=== PATIENT | female | born 1970 | race Caucasian/White ===

== ENCOUNTER 2017-10-01 11:33 | Emergency (ER) | payer OTHER ==
[2017-10-01 11:41] VITALS: TEMP 98.1; BMI 27.4
--- NOTE | 2017-10-01 12:30 | PDOC ---
History of Present Illness - General History Source: Patient Exam Limitations: No Limitations - History of Present Illness Initial Comments: 10/01/17 13:42 The patient is a 46 year old female with a significant PMH of anxiety and depression who presents to the emergency department with a 2 episodes of sharp, localized left sided chest pain beginning approximately 2 days ago. She reports walking to sit and eat and feeling a sudden onset of sharp left sided chest pain on Thursday night which lasted a few minutes before resolving. She reports feeling left chest soreness after this episode all day yesterday which was aggravated by movement and deep inspiration. She reports experiencing a second episode of her sharp left sided chest pain about 3 hours ago while lying in bed , which has been intermittent since then. She reports taking muscle relaxant which she had for a herniated disc to no relief. She notes she had an episode of chest pain about 1 year ago which lasted 1 hour and resolved on its own, but she did not go to the doctor. Of note, the patient had the flu about 1 month ago. The patient denies any nausea, vomiting, or diaphoresis. Family history is pertinent for heart attack (father in 60s). She notes there may be a chance of . The patient denies shortness of breath, headache and dizziness. Denies fever, chills, nausea, vomit, diarrhea and constipation. Denies dysuria, frequency, urgency and hematuria. Allergies: NKA Past surgical history: None reported. Social history: No reported cigarette, alcohol, or drug use. PCP: Dr. Santamaria <Bhavik Pérez - Last Filed: 10/01/17 13:46> <Gamal Gallagher - Last Filed: 10/02/17 16:56> - General Chief Complaint: Chest Pain Stated Complaint: CHEST PAIN Time Seen by Provider: 10/01/17 12:11 Past History <Bhavik Pérez - Last Filed: 10/01/17 13:46> - Past Medical History COPD: No Other medical history: DENIES. - Suicide/Smoking/Psychosocial Hx Smoking History: Never smoked <Gamal Gallagher - Last Filed: 10/02/17 16:56> - Past Medical History Allergies/Adverse Reactions: Allergies Allergy/AdvReac Type Severity Reaction Status Date / Time Penicillins Allergy Verified 10/01/17 11:37 Review of Systems - Review of Systems Able to Perform ROS?: Yes Comments:: 10/01/17 13:42 A complete review of 10 out of 10 review of systems is taken and is negative apart from what is previously mentioned below and in the HPI. <Bhavik Pérez - Last Filed: 10/01/17 13:46> *Physical Exam - Vital Signs Last Vital Signs Temp Pulse Resp BP Pulse Ox 98.1 F 85 19 146/87 100 10/01/17 11:37 10/01/17 11:37 10/01/17 11:37 10/01/17 11:37 10/01/17 11:37 - Physical Exam Comments: 10/01/17 13:45 Vitals: Triage Vital signs reviewed General Appearance: no acute distress, well nourished well developed, Chest Wall: Nontender Cardiac: Regular rate and rhythm, no murmurs, no rubs, no gallops, Lungs: Clear to auscultation bilateral, good air movement bilaterally, Extremities: Full range of motion to all extremities, no cyanosis, clubbing, or edema Neuro: AOX3; Cranial Nerves 2-12 grossly intact, Strength intact to all extremities, Sensation intact to all extremities Psych: normal mood, normal affect <Bhavik Pérez - Last Filed: 10/01/17 13:46> - Vital Signs Last Vital Signs Temp Pulse Resp BP Pulse Ox 98.1 F 85 19 146/87 100 10/01/17 11:37 10/01/17 11:37 10/01/17 11:37 10/01/17 11:37 10/01/17 11:37 <Gamal Gallagher - Last Filed: 10/02/17 16:56> Heart Score/ECG Review - ECG Impressions Comment:: 10/01/17 13:[address] elevations or T-wave inversions Interpreted by me <Gamal Gallagher - Last Filed: 10/02/17 16:56> ED Treatment Course - LABORATORY CBC & Chemistry Diagram: 10/01/17 13:05 10/01/17 13:05 - ADDITIONAL ORDERS Additional order review: Laboratory Results 10/01/17 12:30 Urine HCG, Qual Negative 10/01/17 13:05 RBC 4.78 MCV 91.2 MCHC 32.7 RDW 13.2 MPV 8.4 Neutrophils % 37.4 L Lymphocytes % 48.9 H Monocytes % 6.8 Eosinophils % 5.9 H Basophils % 1.0 <Bhavik Pérez - Last Filed: 10/01/17 13:46> - LABORATORY CBC & Chemistry Diagram: 10/01/17 13:05 10/01/17 13:05 <Gamal Gallagher - Last Filed: 10/02/17 16:56> Medical Decision Making - Medical Decision Making 10/01/17 13:54 46 years old no past medical history several day history of intermittent left- sided chest pain. No diaphoresis no nausea no vomiting non-radiating. No PE DVT risk factors. Negative by perc criteria. Low suspicion for ACS. Heart score 1 We'll check troponin 2 EKG observe and reassess Reevaluation patient chest pain-free troponin negative 2 heart score 1 Patient will follow-up her primary care provider this week Findings, the need for follow-up, strict return instructions discussed with patient. <Gamal Gallagher - Last Filed: 10/02/17 16:56> *DC/Admit/Observation/Transfer - Attestations Scribe Attestion: 10/01/17 13:43 Documentation prepared by Bhavik Pérez, acting as medical laboratory specialist for Gamal Gallagher MD. <Bhavik Pérez - Last Filed: 10/01/17 13:46> - Discharge Dispostion Admit: No <Gamal Gallagher - Last Filed: 10/02/17 16:56> Diagnosis at time of Disposition: Atypical chest pain - Discharge Dispostion Disposition: HOME - Referrals Referrals: Alessandro Santamaria [Primary Care Provider] - - Patient Instructions Printed Discharge Instructions: DI for Atypical Chest Pain Additional Instructions: Drink plenty fluids. Follow up with her doctor this week. Return to the emergency department for any severe worsening symptoms or for any concerns. - Post Discharge Activity
[2017-10-01 13:19] LABS: EOS % 5.9 % (0-4.5); HEMATOCRIT 43.7 % (32.4-45.2); HEMOGLOBIN 14.3 GM/dL (10.7-15.3); LYMPH % 48.9 % (8-40); MCH 29.8 pg (25.7-33.7); MCHC 32.7 g/dl (32.0-36.0); MEAN CELL VOLUME 91.2 fl (80-96); MEAN PLT VOLUME 8.4 fl (7.5-11.1); MONO % 6.8 % (3.8-10.2); NEUT % 37.4 % (42.8-82.8); PLATELET COUNT 220 K/MM3 (134-434); RBC 4.78 M/mm3 (3.60-5.2); RDW 13.2 % (11.6-15.6); WHITE BLOOD COUNT 7.6 K/mm3 (4.0-10.0)
[2017-10-01 13:41] LABS: ALBUMIN 3.7 g/dl (3.4-5.0); ANION GAP 13 (8-16); BILIRUBIN,TOTAL 0.3 mg/dL (0.2-1.0); BLOOD UREA NITROGEN 14 mg/dL (7-18); CALCIUM 8.8 mg/dL (8.5-10.1); CHLORIDE 109 mmol/L (98-107); CO2 20 mmol/L (21-32); CREATININE 0.9 mg/dL (0.55-1.02); GLUCOSE,RANDOM 76 mg/dL (74-106); POTASSIUM 3.7 mmol/L (3.5-5.1); SGOT/AST 19 U/L (15-37); SGPT/ALT 20 U/L (12-78); SODIUM 142 mmol/L (136-145); TOT PROT 7.9 g/dl (6.4-8.2)
[2017-10-01 13:43] LABS: ALK PHOS 82 U/L (45-117)
--- NOTE | 2017-10-01 15:16 | EKG ---
Test Reason : Blood Pressure : / mmHG Vent. Rate : 076 BPM Atrial Rate : 076 BPM P-R Int : 142 ms QRS Dur : 070 ms QT Int : 386 ms P-R-T Axes : 069 002 022 degrees QTc Int : 434 ms NORMAL SINUS RHYTHM NORMAL ECG NO PREVIOUS ECGS AVAILABLE Confirmed by TAMI DC MD ([id number]) on 10/01/2017 3:15:41 PM Referred By: Confirmed By:TAMI DC MD
[2017-10-01 16:09] VITALS: BP 114/79; PULSE 87
== END 2017-10-01 16:10 | disposition home or self-care (01) ==
LOC: JER 11:33
DX: R07.89 Other chest pain (principal)
CPT/HCPCS: 36415; 80053; 84484; 84703; 85025; 93005; 93010; 99283-25

== ENCOUNTER 2017-10-22 13:04 | Emergency (ER) | payer OTHER ==
[2017-10-22 13:08] VITALS: BMI 27.4
[2017-10-22] MEDS ORDERED: ACETAMINOPHEN 500 MG TABLET (FP) PO ONE (15:47)
[2017-10-22] MEDS ORDERED: ACETAMINOPHEN 325 MG TABLET (FP) ONE (15:59)
[2017-10-22 16:18] LABS: HCG,QUALITATIVE URINE NEGATIVE
[2017-10-22 16:22] LABS: URINE APPEARANCE SLCLOUDY; URINE BILIRUBIN NEGATIVE (NEGATIVE); URINE BLOOD 2+ (NEGATIVE); URINE COLOR YELLOW; URINE GLUCOSE (UA) NEGATIVE (NEGATIVE); URINE KETONE NEGATIVE (NEGATIVE); URINE LEUK ESTERASE TRACE (NEGATIVE); URINE NITRITE NEGATIVE (NEGATIVE); URINE PROTEIN NEGATIVE (NEGATIVE); URINE UROBILINOGEN NEGATIVE mg/dL (0.2-1.0)
[2017-10-22 16:26] LABS: EPI CELLS RARE /HPF (FEW); URINE BACTERIA RARE /hpf (NONE SEEN); URINE MUCUS MODERATE
--- NOTE | 2017-10-22 16:35 | PDOC ---
History of Present Illness <Gamal Gallagher - Last Filed: 10/22/17 18:11> - General History Source: Patient Exam Limitations: No Limitations - History of Present Illness Travel History: No Initial Comments: 10/22/17 17:28 37-year-old female presents to the emergency with complaints of left suprapubic pain that she states started 2 days ago she describes as a cramping intermittently sharp pain. Patient states for the past month has had strong foul -smelling urine along with cloudiness to her urine. Patient denies any vaginal discharge irregular menses, abdominal distention, or fever. Patient does complain of pain now radiating to her left lower back. Patient denies history of renal colic, kidney infection, or ovarian cyst. Patient does state has had a UTI before with similar presentation. Timing/Duration: reports: getting worse Quality: reports: moderate, cramping, sharpness Abdominal Pain Onset Location: reports: suprapubic Pain Radiation: reports: flank, back Activities at Onset: reports: eating Aggravating Factors: improves with: None Alleviating Factors: improves with: None <Destiny Vega - Last Filed: 10/22/17 18:58> - General Chief Complaint: Pain Stated Complaint: ABD PAIN Time Seen by Provider: 10/22/17 14:38 Past History <Gamal Gallagher - Last Filed: 10/22/17 18:11> - Travel Traveled outside of the country in the last 30 days: No - Past Medical History COPD: No Other medical history: Herniated disc - Suicide/Smoking/Psychosocial Hx Smoking History: Never smoked Information on smoking cessation initiated: No Hx Alcohol Use: No Drug/Substance Use Hx: No Substance Use Type: None Patient Lives Alone: No Lives with/in: spouse/SO <Destiny Vega - Last Filed: 10/22/17 18:58> - Past Medical History Allergies/Adverse Reactions: Allergies Allergy/AdvReac Type Severity Reaction Status Date / Time Penicillins Allergy Verified 10/22/17 13:08 Review of Systems - Review of Systems Able to Perform ROS?: Yes Constitutional: No: Chills, Fever HEENTM: No: Symptoms Reported Respiratory: No: Symptoms reported Cardiac (ROS): No: Symptoms Reported ABD/GI: Yes: Abdominal cramping : Yes: Flank Pain, Other (foul-smelling urine) Integumentary: No: Symptoms Reported Neurological: No: Symptoms reported Endocrine: No: Symptoms Reported Hematologic/Lymphatic: No: Symptoms Reported <Silvia,Destiny - Last Filed: 10/22/17 18:58> *Physical Exam - Vital Signs Last Vital Signs Temp Pulse Resp BP Pulse Ox 97.7 F 72 17 124/89 100 10/22/17 13:05 10/22/17 13:05 10/22/17 13:05 10/22/17 13:05 10/22/17 13:05 <Gamal Gallagher - Last Filed: 10/22/17 18:11> - Vital Signs Last Vital Signs Temp Pulse Resp BP Pulse Ox 97.7 F 72 17 124/89 100 10/22/17 13:05 10/22/17 13:05 10/22/17 13:05 10/22/17 13:05 10/22/17 13:05 - Physical Exam General Appearance: Yes: Nourished, Appropriately Dressed. No: Apparent Distress HEENT: negative: Pale Conjunctivae Neck: positive: Normal Thyroid, Supple Respiratory/Chest: positive: Lungs Clear, Normal Breath Sounds. negative: Respiratory Distress, Accessory Muscle Use Cardiovascular: positive: Regular Rhythm, Regular Rate. negative: Murmur Female Pelvic Exam: positive: normal external exam, cervical os closed, normal adnexa. negative: CMT, discharge, adnexal tenderness, vaginal bleeding Gastrointestinal/Abdominal: positive: Normal Bowel Sounds, Soft, Guarding (mild left suprapubic), Tenderness (left suprapubic and flank). negative: Distended, Rebound Musculoskeletal: positive: CVA Tenderness (L) Integumentary: positive: Normal Color, Warm, Moist Neurologic: positive: Motor Strength 5/5 (ambulatory) <Destiny Vega - Last Filed: 10/22/17 18:58> ED Treatment Course - LABORATORY CBC & Chemistry Diagram: 10/22/17 14:15 10/22/17 14:15 - ADDITIONAL ORDERS Additional order review: Laboratory Results 10/22/17 10/22/17 15:25 14:15 Sodium 138 Potassium 4.2 Chloride 104 Carbon Dioxide 28 Anion Gap 6 L BUN 12 Creatinine 0.8 Creat Clearance w eGFR > 60 Random Glucose 60 L Calcium 8.9 Total Bilirubin 0.3 AST 19 ALT 18 Alkaline Phosphatase 83 Total Protein 7.8 Albumin 3.8 Urine Color Yellow Urine Appearance Slcloudy Urine pH 6.0 Ur Specific [place] 1.018 Urine Protein Negative Urine Glucose (UA) Negative Urine Ketones Negative Urine Blood 2+ H Urine Nitrite Negative Urine Bilirubin Negative Urine Urobilinogen Negative Ur Leukocyte Esterase Trace Urine WBC (Auto) 4 Urine RBC (Auto) 6 Ur Epithelial Cells Rare Urine Bacteria Rare Urine Mucus Moderate Urine HCG, Qual Negative 10/22/17 14:15 RBC 4.33 MCV 90.4 MCHC 34.4 RDW 13.0 MPV 8.9 Neutrophils % 34.8 L Lymphocytes % 49.5 H Monocytes % 8.5 Eosinophils % 6.6 H Basophils % 0.6 - Medications Given in the ED: ED Medications Discontinued Medications Generic Name Dose Route Start Last Admin Trade Name Freq PRN Reason Stop Dose Admin Acetaminophen 975 mg 10/22/17 15:47 10/22/17 15:49 Tylenol - PO 10/22/17 15:48 975 mg ONCE ONE Administration <Gamal Gallagher - Last Filed: 10/22/17 18:11> - LABORATORY CBC & Chemistry Diagram: 10/22/17 14:15 10/22/17 14:15 - ADDITIONAL ORDERS Additional order review: Laboratory Results 10/22/17 15:25 Urine HCG, Qual Negative - Medications Given in the ED: ED Medications Discontinued Medications Generic Name Dose Route Start Last Admin Trade Name Freq PRN Reason Stop Dose Admin Acetaminophen 975 mg 10/22/17 15:47 10/22/17 15:49 Tylenol - PO 10/22/17 15:48 975 mg ONCE ONE Administration <Destiny Vega - Last Filed: 10/22/17 18:58> Medical Decision Making - Medical Decision Making I reviewed the case of the mid-level practitioner and was available for consultation while in the emergency department <Gamal Gallagher - Last Filed: 10/22/17 18:11> - Medical Decision Making 10/22/17 16:38 Patient for evaluation of left suprapubic pain along with strong foul-smelling urine describes cloudy appearance. Patient on exam with left CVA tenderness along with left pubic pain. Differential diagnoses to include UTI, renal colic, torsion, ovarian cyst, pyelonephritis. Patient ordered for labs, Tylenol, urinalysis urine urine culture along with ultrasound. 10/22/17 17:39 Laboratory Tests 10/22/17 15:25 Urine Blood 2+ H Urine Nitrite Negative Ur Leukocyte Esterase Trace Urine WBC (Auto) 4 Urine RBC (Auto) 6 Urine HCG, Qual Negative 10/22/17 18:05 Laboratory Tests 10/22/17 10/22/17 14:15 14:15 WBC 10.4 H D Hgb 13.5 Hct 39.2 Plt Count 293 D Neutrophils % 34.8 L Lymphocytes % 49.5 H Eosinophils % 6.6 H Sodium 138 Potassium 4.2 Chloride 104 Carbon Dioxide 28 Anion Gap 6 L BUN 12 Creatinine 0.8 Random Glucose 60 L Calcium 8.9 Total Bilirubin 0.3 AST 19 ALT 18 Alkaline Phosphatase 83 Total Protein 7.8 Albumin 3.8 Patient added for kidney ultrasound. Patient states is not currently menstruating and is not due until the . Patient given orange juice and dinner tray secondary to glucose of 60. <Destiny Vega - Last Filed: 10/22/17 18:58> *DC/Admit/Observation/Transfer <Gamal Gallagher - Last Filed: 10/22/17 18:11> <Destiny Vega - Last Filed: 10/22/17 18:58> - Referrals Referrals: Alessandro Santamaria [Primary Care Provider] - - Patient Instructions - Post Discharge Activity
[2017-10-22 17:10] LABS: ALBUMIN 3.8 g/dl (3.4-5.0); ANION GAP 6 (8-16); BLOOD UREA NITROGEN 12 mg/dL (7-18); CALCIUM 8.9 mg/dL (8.5-10.1); CHLORIDE 104 mmol/L (98-107); CO2 28 mmol/L (21-32); GLUCOSE,RANDOM 60 mg/dL (74-106); POTASSIUM 4.2 mmol/L (3.5-5.1); SODIUM 138 mmol/L (136-145)
[2017-10-22 17:13] LABS: ALK PHOS 83 U/L (45-117); BILIRUBIN,TOTAL 0.3 mg/dL (0.2-1.0); CREATININE 0.8 mg/dL (0.55-1.02); SGOT/AST 19 U/L (15-37); SGPT/ALT 18 U/L (12-78); TOT PROT 7.8 g/dl (6.4-8.2)
[2017-10-22 17:46] LABS: BASO % 0.6 % (0-2.0); EOS % 6.6 % (0-4.5); HEMATOCRIT 39.2 % (32.4-45.2); HEMOGLOBIN 13.5 GM/dL (10.7-15.3); LYMPH % 49.5 % (8-40); MCH 31.1 pg (25.7-33.7); MCHC 34.4 g/dl (32.0-36.0); MEAN CELL VOLUME 90.4 fl (80-96); MEAN PLT VOLUME 8.9 fl (7.5-11.1); MONO % 8.5 % (3.8-10.2); NEUT % 34.8 % (42.8-82.8); PLATELET COUNT 293 K/MM3 (134-434); RBC 4.33 M/mm3 (3.60-5.2); WHITE BLOOD COUNT 10.4 K/mm3 (4.0-10.0)
[2017-10-22 19:21] VITALS: BP 170/85; PULSE 75; TEMP 98.5
[2017-10-22] MEDS ORDERED: KETOROLAC TROMETHAMINE 30 MG/1 ML VIAL IVPUSH ONE (20:55)
[2017-10-22] MEDS ORDERED: KETOROLAC TROMETHAMINE 30 MG/1 ML VIAL IM ONE (20:57)
[2017-10-22] MEDS ORDERED: KETOROLAC TROMETHAMINE 30 MG/1 ML VIAL ONE (21:00)
--- NOTE | 2017-10-22 21:24 | PDOC ---
*Physical Exam - Vital Signs Last Vital Signs Temp Pulse Resp BP Pulse Ox 98.5 F 75 16 170/85 100 10/22/17 19:19 10/22/17 19:19 10/22/17 19:19 10/22/17 19:19 10/22/17 19:19 ED Treatment Course - LABORATORY CBC & Chemistry Diagram: 10/22/17 14:15 10/22/17 14:15 - ADDITIONAL ORDERS Additional order review: Laboratory Results 10/22/17 10/22/17 15:25 14:15 Sodium 138 Potassium 4.2 Chloride 104 Carbon Dioxide 28 Anion Gap 6 L BUN 12 Creatinine 0.8 Creat Clearance w eGFR > 60 Random Glucose 60 L Calcium 8.9 Total Bilirubin 0.3 AST 19 ALT 18 Alkaline Phosphatase 83 Total Protein 7.8 Albumin 3.8 Urine Color Yellow Urine Appearance Slcloudy Urine pH 6.0 Ur Specific [place] 1.018 Urine Protein Negative Urine Glucose (UA) Negative Urine Ketones Negative Urine Blood 2+ H Urine Nitrite Negative Urine Bilirubin Negative Urine Urobilinogen Negative Ur Leukocyte Esterase Trace Urine WBC (Auto) 4 Urine RBC (Auto) 6 Ur Epithelial Cells Rare Urine Bacteria Rare Urine Mucus Moderate Urine HCG, Qual Negative 10/22/17 14:15 RBC 4.33 MCV 90.4 MCHC 34.4 RDW 13.0 MPV 8.9 Neutrophils % 34.8 L Lymphocytes % 49.5 H Monocytes % 8.5 Eosinophils % 6.6 H Basophils % 0.6 - Medications Given in the ED: ED Medications Discontinued Medications Generic Name Dose Route Start Last Admin Trade Name Freq PRN Reason Stop Dose Admin Acetaminophen 975 mg 10/22/17 15:47 10/22/17 15:49 Tylenol - PO 10/22/17 15:48 975 mg ONCE ONE Administration Ketorolac Tromethamine 30 mg 10/22/17 20:57 10/22/17 20:58 Toradol Injection - IM 10/22/17 20:58 30 mg ONCE ONE Administration Medical Decision Making - Medical Decision Making 10/22/17 21:19 Patient was endorsed to me to follow ultrasound and disposition. Patient found poking on her left side seems to be still uncomfortable. She c/o pain to the left lower quad. will give toradol 30mg IM. US reported no significant findings, however, UA has blood and and clinically suggestive of stone. patient offered a CT scan but declines at this time. Offered follow up with Urology. I discussed the physical exam findings, ancillary test results and final diagnoses with the patient. I answered all of the patient's questions. The patient was satisfied with the care received and felt comfortable with the discharge plan and treatment plan. The Patient agrees to follow up with the primary care physician within 24-72 hours. *DC/Admit/Observation/Transfer Diagnosis at time of Disposition: Renal colic on left side - Discharge Dispostion Disposition: HOME Condition at time of disposition: Stable - Referrals Referrals: Alessandro Santamaria [Primary Care Provider] - Konstantin Joyce MD., [Staff Physician] - - Patient Instructions Printed Discharge Instructions: Kidney Stones -- Adult Additional Instructions: Your Discharge Instructions: You must call primary care physician within 24 hours to arrange follow-up. Return to the Emergency Department with any new, persistent or worsening symptoms, for fever, chills, SOB, dizziness or any other concerning changes that may occur. He was follow-up with urology in 1-2 days. Strain your urine to see if you catch a stone. - Post Discharge Activity
== END 2017-10-22 21:55 | disposition home or self-care (01) ==
LOC: JER 13:04
PROC: 3E0233Z Introduction of Anti-inflammatory into Muscle, Percutaneous Approach (ICD-10-PCS; principal; 2017-10-22)
DX: N23 Unspecified renal colic (principal)
CPT/HCPCS: 36415; 76775-TC; 76830-TC; 76856-TC; 80053; 81003; 81015; 84703; 85025; 87086; 87186; 99282-25

== ENCOUNTER 2019-07-05 17:16 | Emergency (ER) | payer OTHER ==
[2019-07-05 17:27] VITALS: BP 165/92; PULSE 85; TEMP 97.6; BMI 26.6
[2019-07-05] MEDS ORDERED: ASPIRIN 81 MG CHEWABLE TABLETS PO ONE (19:37)
--- NOTE | 2019-07-05 19:39 | PDOC ---
History of Present Illness - General Chief Complaint: Chest Pain Stated Complaint: CHEST PAIN/NAUSEA Time Seen by Provider: 07/05/19 19:32 History Source: Patient - History of Present Illness Initial Comments: 07/05/19 19:33 48 YEAR OLD FEMALE with left sided numbness, midsternal chest pain and high blood pressure, slight headachefor 4 days. + nausea. patient reports high reading on blood pressure her machine at home. PMHX: none PSHX: left shoulder surgery PMHX: Dr. Figueroa 07/05/19 19:37 Presenting Symptoms: Chest Pain Timing/Duration: reports: intermittent Severity/Quality: reports: sharp Chest Pain Radiation: reports: arms Aspirin Received prior to arrival (Core Measure): Yes: no aspirin today Past History - Past Medical History Allergies/Adverse Reactions: Allergies Allergy/AdvReac Type Severity Reaction Status Date / Time Penicillins Allergy Verified 07/05/19 17:35 Home Medications: Ambulatory Orders Ibuprofen [Motrin -] 600 mg PO QID #120 tablet 10/22/17 Tamsulosin HCl [Flomax] 0.4 mg PO ONCE #7 cap.er.24h 10/22/17 Tramadol HCl [Ultram] 50 mg PO TID #14 tablet MDD 6 10/22/17 Nitrofurantoin Monohyd/M-Cryst [Macrobid -] 100 mg PO BID #14 capsule 10/27/17 COPD: No - Psycho Social/Smoking Cessation Hx Smoking History: Never smoked Hx Alcohol Use: No Drug/Substance Use Hx: No Substance Use Type: None Review of Systems - Review of Systems Able to Perform ROS?: Yes Is the patient limited Polish proficient: No Constitutional: No: Symptoms Reported, See HPI, Chills, Diaphoresis, Fever, Loss of Appetite, Malaise, Night Sweats, Weakness, Weight Stable, Unintentional Wgt. Loss, Unexplained wgt Loss, Other Cardiac (ROS): Yes: Chest Pain ABD/GI: Yes: Nausea. No: Symptoms Reported, See HPI, Abdominal Distended, Abd. Pain w/ defecation, Blood Streaked Bowels, Constipated, Diarrhea, Difficulty Swallowing, Poor Appetite, Poor Fluid Intake, Rectal Bleeding, Vomiting, Indigestion, Abdominal cramping, Tarry Stools, Other *Physical Exam - Vital Signs Last Vital Signs Temp Pulse Resp BP Pulse Ox 97.6 F 85 14 165/92 98 11/26/19 17:23 07/05/19 17:23 07/05/19 17:23 07/05/19 17:23 07/05/19 17:23 - Physical Exam General Appearance: Yes: Appropriately Dressed Respiratory/Chest: positive: Lungs Clear, Normal Breath Sounds. negative: Chest Tender Gastrointestinal/Abdominal: positive: Normal Bowel Sounds, Soft. negative: Tender Extremity: positive: Normal Capillary Refill, Normal Inspection, Normal Range of Motion Integumentary: positive: Normal Color, Dry, Warm Neurologic: positive: Fully Oriented, Alert Heart Score/ECG Review - History History: Slightly suspicious - Electrocardiogram EKG: Normal - Age Age: 45-65 - Risk Factors Based on the list above the patient has:: No risk factors known - ECG Intrepretation Rhythm: Regular Rhythm ED Treatment Course - LABORATORY CBC & Chemistry Diagram: 07/05/19 21:22 07/05/19 21:22 - ADDITIONAL ORDERS Additional order review: Laboratory Results 07/05/19 07/05/19 07/05/19 21:22 21:22 21:22 Sodium 141 Potassium 3.9 Chloride 111 H Carbon Dioxide 22 Anion Gap 8 BUN 17.8 Creatinine 0.9 Est GFR (CKD-EPI)AfAm 88.25 Est GFR (CKD-EPI)NonAf 76.14 Random Glucose 65 L Calcium 9.3 Magnesium 2.3 Total Bilirubin 0.3 AST 19 ALT 14 Alkaline Phosphatase 80 Creatine Kinase Troponin I Total Protein 7.9 Albumin 3.8 Urine Color Yellow Urine Appearance Clear Urine pH 6.5 Ur Specific [place] 1.023 Urine Protein Negative Urine Glucose (UA) Negative Urine Ketones Negative Urine Blood Negative Urine Nitrite Negative Urine Bilirubin Negative Urine Urobilinogen 1.0 Ur Leukocyte Esterase Trace Urine WBC (Auto) 5 Urine RBC (Auto) 3 Urine Casts (Auto) None U Epithel Cells (Auto) 3 Urine Bacteria (Auto) 4 Urine HCG, Qual Negative 07/05/19 21:22 Sodium Potassium Chloride Carbon Dioxide Anion Gap BUN Creatinine Est GFR (CKD-EPI)AfAm Est GFR (CKD-EPI)NonAf Random Glucose Calcium Magnesium Total Bilirubin AST ALT Alkaline Phosphatase Creatine Kinase 91 Troponin I < 0.02 Total Protein Albumin Urine Color Urine Appearance Urine pH Ur Specific [place] Urine Protein Urine Glucose (UA) Urine Ketones Urine Blood Urine Nitrite Urine Bilirubin Urine Urobilinogen Ur Leukocyte Esterase Urine WBC (Auto) Urine RBC (Auto) Urine Casts (Auto) U Epithel Cells (Auto) Urine Bacteria (Auto) Urine HCG, Qual 07/05/19 21:22 RBC 4.59 MCV 91.2 MCHC 33.0 RDW 13.5 MPV 8.7 Neutrophils % 42.3 L D Lymphocytes % 44.2 H Monocytes % 7.4 Eosinophils % 4.6 H Basophils % 1.5 - RADIOLOGY Radiology Studies Ordered: Category Date Time Status CHEST PA & LAT [RAD] Stat Radiology 07/05/19 19:37 Taken - Medications Given in the ED: ED Medications Discontinued Medications Generic Name Dose Route Start Last Admin Trade Name Freq PRN Reason Stop Dose Admin Aspirin 162 mg 07/05/19 19:37 07/05/19 21:27 Asa - PO 07/05/19 19:38 162 mg ONCE ONE Administration Medical Decision Making - Medical Decision Making 07/05/19 23:07 no chest pain. feeling better . b/p 144/82; 70, 20 100%RA ED Progress Note - Progress Note Progress Note: Chest pain P: labs EKG chest xray Discharge - Discharge Information Problems reviewed: Yes Clinical Impression/Diagnosis: Chest pain Qualifiers: Chest pain type: unspecified Qualified Code(s): R07.9 - Chest pain, unspecified Condition: Fair Disposition: HOME - Follow up/Referral Referrals: Jayme Reich MD [Staff Physician] - Call tomorrow Alessandro Santamaria [Primary Care Provider] - Call tomorrow - Patient Discharge Instructions Patient Printed Discharge Instructions: DI for Chest Pain Additional Instructions: MONITOR YOUR BLOOD PRESSURE AT HOME. IT IS IMPORTANT THAT YOU follow up with your doctor, return to the ER for any worsening symptoms - Post Discharge Activity Work/Back to School Note: Back to Work
[2019-07-05] MEDS ORDERED: ASPIRIN 81 MG CHEWABLE TABLETS ONE (21:23)
[2019-07-05 21:34] LABS: BASO % 1.5 % (0-2.0); EOS % 4.6 % (0-4.5); HEMATOCRIT 41.9 % (32.4-45.2); HEMOGLOBIN 13.8 GM/dL (10.7-15.3); LYMPH % 44.2 % (8-40); MCH 30.1 pg (25.7-33.7); MEAN CELL VOLUME 91.2 fl (80-96); MEAN PLT VOLUME 8.7 fl (7.5-11.1); MONO % 7.4 % (3.8-10.2); NEUT % 42.3 % (42.8-82.8); PLATELET COUNT 244 K/MM3 (134-434); RBC 4.59 M/mm3 (3.60-5.2); RDW 13.5 % (11.6-15.6); WHITE BLOOD COUNT 9.6 K/mm3 (4.0-10.0)
[2019-07-05 22:02] LABS: ALBUMIN 3.8 g/dl (3.4-5.0); BILIRUBIN,TOTAL 0.3 mg/dL (0.2-1); BLOOD UREA NITROGEN 17.8 mg/dL (7-18); CALCIUM 9.3 mg/dL (8.5-10.1); CREATININE 0.9 mg/dL (0.55-1.3); MAGNESIUM 2.3 mg/dL (1.8-2.4); POTASSIUM 3.9 mmol/L (3.5-5.1); TOT PROT 7.9 g/dl (6.4-8.2)
[2019-07-06 01:09] LABS: URINE APPEARANCE CLEAR; URINE COLOR YELLOW; URINE GLUCOSE (UA) NEGATIVE (NEGATIVE)
[2019-07-06 01:10] LABS: PH,URINE 6.5 (5.0-8.0); URINE BILIRUBIN NEGATIVE (NEGATIVE); URINE KETONE NEGATIVE (NEGATIVE); URINE PROTEIN NEGATIVE (NEGATIVE)
[2019-07-06 01:11] LABS: EPI CELLS 3 /HPF (0-5/HPF); URINE BACTERIA 4 /hpf (NEGATIVE); URINE LEUK ESTERASE TRACE (NEGATIVE); URINE NITRITE NEGATIVE (NEGATIVE); URINE RBC 3 /hpf (0-4); URINE WBC 5 /hpf (0-5)
--- NOTE | 2019-07-06 10:48 | EKG ---
Test Reason : Blood Pressure : / mmHG Vent. Rate : 079 BPM Atrial Rate : 079 BPM P-R Int : 142 ms QRS Dur : 074 ms QT Int : 378 ms P-R-T Axes : 067 000 026 degrees QTc Int : 433 ms NORMAL SINUS RHYTHM POSSIBLE LEFT ATRIAL ENLARGEMENT SEPTAL INFARCT , AGE UNDETERMINED ABNORMAL ECG WHEN COMPARED WITH ECG OF 01-OCT-2017 11:46, SEPTAL INFARCT IS NOW PRESENT Confirmed by SANTA MONTANEZ, DANISH ([id number]) on 07/06/2019 10:47:39 AM Referred By: Confirmed By:DANISH PRATT MD
== END 2019-07-06 00:15 | disposition home or self-care (01) ==
LOC: JER 17:16
DX: R07.9 Chest pain, unspecified (principal); I10 Essential (primary) hypertension; Z88.0 Allergy status to penicillin
CPT/HCPCS: 36415; 71046-TC-FY; 80053; 81003; 82550; 83735; 84484; 84703; 85025; 93005; 93010; 99283-25